=== PATIENT | female | born 1990 | race Caucasian/White ===

== ENCOUNTER → 2018-03-23 11:01 | Outpatient (CLI) | payer OTHER, SELFPAY ==
[2018-03-24 14:45] LABS: HPV Reflexed? NOT INDICATED
== END ==
PROVIDERS: Visit Provider Obstetrics & Gynecology
DX: Z12.4 Encounter for screening for malignant neoplasm of cervix (principal)
CPT/HCPCS: 88175; G0145

== ENCOUNTER → 2018-09-01 11:12 | Outpatient (CLI) | payer OTHER, SELFPAY ==
[2018-09-01 12:22] LABS: Progesterone Level 0.31 ng/mL (See Comment)
[2018-09-01 12:23] LABS: Hemoglobin A1c 4.9 % (4.2-6.3)
[2018-09-01 12:25] LABS: Estradiol 55.8 pg/mL; Free T3 2.9 pg/mL (2.18-3.98); T4 Free Direct 0.93 ng/dL (0.76-1.46); Thyroid Stim Hormone (TSH) 0.72 uIU/mL (0.358-3.74)
[2018-09-02 12:36] LABS: Thyroid Peroxidase AB 11 IU/mL (0-34)
== END ==
PROVIDERS: Visit Provider Obstetrics & Gynecology
DX: N91.1 Secondary amenorrhea (principal)
CPT/HCPCS: 36415; 82670; 83036; 84144; 84403; 84439; 84443; 84481; 86376

== ENCOUNTER → 2018-11-18 12:34 | Outpatient (CLI) | payer OTHER, SELFPAY ==
[2018-11-18 14:27] LABS: Estradiol 69.4 pg/mL
[2018-11-18 14:33] LABS: Progesterone Level 45.36 ng/mL (See Comment)
--- OUTSIDE RECORDS SUMMARY | 2019-01-23 02:22 | XMS RPT_ITS ---
:1990 Author Organization OHIP Care Team Providers Name Role Phone COLEMAN PRASAD DO Admitting Unavailable COLEMAN PRASAD DO Attending Unavailable COLEMAN PRASAD DO Primary Care Unavailable MCKENNA LOPEZ DPZhen Admitting Unavailable MCKENNA LOPEZ DPM Attending Unavailable MCKENNA LOPEZ DPM Primary Care Unavailable [place], ALDAIR Consulting Unavailable PROVIDER, UNKNOWN Consulting Unavailable [place], ALDAIR Admitting Unavailable [place], ALDAIR Attending Unavailable [place], ALDAIR Primary Care Unavailable [place], ALDAIR Consulting Unavailable PROVIDER, UNKNOWN Consulting Unavailable [place], ALDAIR Admitting Unavailable [place], ALDAIR Attending Unavailable [place], ALDAIR Primary Care Unavailable [place], ALDAIR Consulting Unavailable PROVIDER, UNKNOWN Consulting Unavailable ALDAIR HAAS Admitting Unavailable ALDAIR HAAS Attending Unavailable ALDAIR HAAS Primary Care Unavailable ALDAIR HAAS Consulting Unavailable PROVIDER, UNKNOWN Consulting Unavailable Seema Yeh Attending Unavailable Seema Yeh Referring Unavailable Aldair Haas PA-C Primary Care Unavailable Seema Yeh Attending Unavailable Seema Yeh Attending Unavailable PROBLEMS PROBLEMS DATE TYPE CONDITION / CODE ATTENDING STATUS SOURCE 08/03/2018 Principle Amenorrhea, ALDAIR HAAS Active Ronny Pomirina Diagnosis unspecified / [facility] N[facility](ICD-10[facility] Repository 03/23/2018 Unknown Z12.4 - Encounter Seema Yeh for screening for [facility] neoplasm of Repository cervix / Z12.4(ICD-10) PROCEDURES PROCEDURES No Procedure Records FoundRESULTS RESULTS ESTRADIOL Collected: 11/18/2018 Status: F Source: [place] 12:49 PM [facility] REPOSITORY TYPE CODE TESTS RESULT OUT OF RANGE REFERENCE UNITS LAB L3300.1750 pg/mL Normal ESTRADIOL 69.4 Result Comment: NORMAL REFERENCE RANGES FEMALE FOLLICULAR 21.4 - 164.8 pg/mL MID-CYCLE PEAK 49.9 - 367.2 pg/mL LUTEAL 40.2 - 259.0 pg/mL POST-MENOPAUSAL ON MHT <11.0 - 462.1 pg/mL NOT ON MHT <11.0 - 58.3 pg/mL MALE <11.0 - 52.5 pg/mL NOTE: [facility] HAS CONFIRMED THE DRUG FULVETRANT (FASLODEX) MAY CAUSE FALSELY ELEVATED ESTRADIOL RESULTS WHEN USING THIS TEST METHOD. IF PATIENT IS TAKING FULVESTRANT AN ALTERNATIVE METHOD SHOULD BE USED TO DETERMINE ESTRADIOL CONCENTRATION. Performed By: #### L3300.1750 #### [facility] [address] [place], [address] PROGESTERONE LEVEL Collected: 11/18/2018 Status: F Source: [place] 12:49 PM [facility] REPOSITORY TYPE CODE TESTS RESULT OUT OF REFERENCE UNITS RANGE LAB L509.4001 See Comment ng/mL Progesterone Normal 45.36 Result Comment: Progesterone Reference Table: UNITS Female: Follicular 0.15 - 1.40 ng/mL Luteal 3.34 - 25.56 ng/mL Mid-luteal 4.44 - 28.03 ng/mL Postmenopausal 0.0 - 0.73 ng/mL : 1st Trimester 11.22 - 90.00 ng/mL 2nd Trimester 25.55 - 89.40 ng/mL 3rd Trimester 48.40 -422.50 ng/mL Performed By: #### L509.4001 #### [facility] [address] [place], [address] TESTOSTERONE, SERUM TOTAL Collected: 09/01/2018 Status: F Source: [place] 11:34 AM [facility] REPOSITORY TYPE CODE TESTS RESULT OUT OF REFERENCE UNITS RANGE LAB L509.3000 ng/dL Testosterone Normal 56.91 Result Comment: NORMAL REFERENCE RANGES MALE AGE <50 123.06 - 813.86 ng/dL MALE AGE >50 89.98 - 780.10 ng/dL FEMALE PREMENOPAUSE AGE 21 - 60 9.01 - 47.94 ng/dL FEMALE POSTMENOPAUSE AGE 45 - 89 <7.00 - 45.62 ng/dL REFERENCE RANGE AND METHODOLOGY CHANGED 10/20/2017 Performed By: #### L509.3000, L509.4001 #### [facility] [address] [place], [place], [address] PROGESTERONE LEVEL Collected: 09/01/2018 Status: F Source: [place] 11:34 AM [facility] REPOSITORY TYPE CODE TESTS RESULT OUT OF REFERENCE UNITS RANGE LAB L509.4001 See Comment ng/mL Progesterone Normal 0.31 Result Comment: Progesterone Reference Table: UNITS Female: Follicular 0.15 - 1.40 ng/mL Luteal 3.34 - 25.56 ng/mL Mid-luteal 4.44 - 28.03 ng/mL Postmenopausal 0.0 - 0.73 ng/mL : 1st Trimester 11.22 - 90.00 ng/mL 2nd Trimester 25.55 - 89.40 ng/mL 3rd Trimester 48.40 -422.50 ng/mL Performed By: #### L509.3000, L509.4001 #### [facility] [address] [facility] [place], [address] HEMOGLOBIN A1C Collected: 09/01/2018 Status: F Source: [place] 11:34 AM [facility] REPOSITORY TYPE CODE TESTS RESULT OUT OF RANGE REFERENCE UNITS LAB L501.9985 4.2-6.3 % Normal HGB A1C 4.9 Performed By: #### L501.9985 #### [facility] [address] [place], [address] FREE T3 Collected: 09/01/2018 Status: F Source: [place] 11:34 AM [facility] REPOSITORY TYPE CODE TESTS RESULT OUT OF RANGE REFERENCE UNITS LAB L501.38061 2.18-3.98 pg/mL Normal FREE T3 2.9 Performed By: #### L501.96378, L501.9520, L506.0400, L3300.1750 #### [facility] [address] [place], [address] THYROID STIM HORMONE Collected: 09/01/2018 Status: F Source: [place] (TSH) 11:34 AM [facility] REPOSITORY TYPE CODE TESTS RESULT OUT OF RANGE REFERENCE UNITS LAB L501.9520 0.358-3.74 uIU/mL Normal TSH 0.72 Performed By: #### L501.37618, L501.9520, L506.0400, L3300.1750 #### [facility] [address] [place], [address] T4 FREE DIRECT Collected: 09/01/2018 Status: F Source: [place] 11:34 AM [facility] REPOSITORY TYPE CODE TESTS RESULT OUT OF RANGE REFERENCE UNITS LAB L506.0400 0.76-1.46 ng/dL Normal T4 FREE 0.93 DIRECT Performed By: #### L501.55363, L501.9520, L506.0400, L3300.1750 #### [facility] [address] [place], [address] ESTRADIOL Collected: 09/01/2018 Status: F Source: [place] 11:34 AM [facility] REPOSITORY TYPE CODE TESTS RESULT OUT OF RANGE REFERENCE UNITS LAB L3300.1750 pg/mL Normal ESTRADIOL 55.8 Result Comment: NORMAL REFERENCE RANGES FEMALE FOLLICULAR 21.4 - 164.8 pg/mL MID-CYCLE PEAK 49.9 - 367.2 pg/mL LUTEAL 40.2 - 259.0 pg/mL POST-MENOPAUSAL ON MHT <11.0 - 462.1 pg/mL NOT ON MHT <11.0 - 58.3 pg/mL MALE <11.0 - 52.5 pg/mL NOTE: [facility] HAS CONFIRMED THE DRUG FULVETRANT (FASLODEX) MAY CAUSE FALSELY ELEVATED ESTRADIOL RESULTS WHEN USING THIS TEST METHOD. IF PATIENT IS TAKING FULVESTRANT AN ALTERNATIVE METHOD SHOULD BE USED TO DETERMINE ESTRADIOL CONCENTRATION. Performed By: #### L501.39840, L501.9520, L506.0400, L3300.1750 #### [facility] [address] [place], [address] THYROID PEROXIDASE AB Collected: 09/01/2018 Status: F Source: [place] 11:34 AM [facility] REPOSITORY TYPE CODE TESTS RESULT OUT OF RANGE REFERENCE UNITS LAB L3300.6900 0-34 IU/mL Normal TPO AB 11 1710 Result Comment: Performed at: - [facility] [address] [id number] Baggage Checker: Reno Dennis PhD, Phone: [phone] Performed By: #### L3300.6900 #### [facility] (refer to report for specific site) refer to report for address and phone number US PELVIC Observed: 08/19/2018 Status: F Source: [place] 2:[address] [address] Patient: PAULY PERES Phone#: : 1990 Age: 27 Gender: F Pt. Type: Out Account: [id number] Location: [facility] Ordering: ALDAIR [place] Exam Date: 08/19/2018/13:50 Family Phys: ALDAIR HAAS Charge Code: [id number] Physician: [place] Order #: [id number] DLP Dose#: PROCEDURE: PELVIC ULTRASOUND, TRANSABDOMINAL ENDOVAGINAL COMPARISON: None. INDICATIONS: Ammenorrhea TECHNIQUE: Pelvic ultrasound using transabdominal and endovaginal technique. FINDINGS: UTERUS: Size is 5.8 x 3 x 4 cm with unremarkable appearance. Endometrial thickness is 4 mm. ADNEXAE: Normal bilateral appearance with no significant masses. Right ovary is <<3.4 x 3.7> cm. Left ovary is <3 x 1.8>cm. CUL-DE-SAC: Normal. No fluid or mass. OTHER: No free fluid in the pelvis CONCLUSION: 1. Unremarkable pelvic ultrasound Dictated by: Denzel Vyas MD on 08/19/2018 at 15:04 Approved by: Denzel Vyas MD on 08/19/2018 at 15:04 PREG SERUM QUANT Collected: 08/03/2018 Status: F Source: [place] 5:05 PM [facility] TYPE CODE TESTS RESULT OUT OF REFERENCE UNITS RANGE LAB HCG mIU/mL QUANTITATI VE(LOINC) HCG QUANTITATIVE <0.5 Result Comment: Reference Range: Male: <5 Female: Non: <5 1 - 7 days : 5 - 50 1 - 2 weeks: 50 - 500 2 - 3 weeks: 100 - 5000 3 - 4 weeks: 500 - 10,000 4 - 5 weeks: 1000 - 50,000 5 - 6 weeks: 10,000 - 100,000 6 - 8 weeks: 15,000 - 200,000 2 - 3 months: 10,000 - 100,000 2ND TRIMESTER 3000-50,000 3RD TRIMESTER 1000-50,000 Performed By: #### [id number] #### [place] [address] TSH Collected: 08/03/2018 Status: F Source: [place] 5:05 [facility] TYPE CODE TESTS RESULT OUT OF RANGE REFERENCE UNITS LAB TSH(LOINC) 0.34 - 5.60 uIU/ml TSH 0.99 Performed By: #### [id number] #### [facility],[address] [place] [address] FOOT COMPLETE LT Observed: 04/11/2018 Status: F Source: [place] 8:08 AM [place] [address] Patient: PAULY PERES Phone#: : 1990 Age: 27 Gender: F Pt. Type: Out Account: [id number] Location: 052 Ordering: MCKENNA LOPEZ Exam Date: 04/11/2018/7:51 Family Phys: ALDAIR HAAS Charge Code: [id number] Physician: [place] Order #: [id number] DLP Dose#: PROCEDURE: X-RAY FOOT LT COMPLETE MIN 3 VIEWS COMPARISON: [facility], XR, FOOT LT COMPLETE, 03/12/2018, 12:49. INDICATIONS: Follow-up left foot fracture FINDINGS: BONES: Stable position and alignment at site of fracture the base of the fifth metatarsal. There is no significant callus identified. SOFT TISSUES: Negative. No visible soft tissue swelling. EFFUSION: None visible. OTHER: Negative. CONCLUSION: 1. Stable position and alignment at site of fracture of the fifth metatarsal. Dictated by: Laura Paz MD on 04/11/2018 at 11:16 Approved by: Laura Paz MD on 04/11/2018 at 11:16 PAP I-G W/RFX HRHPV Collected: 03/23/2018 Status: F Source: [place] 9:30 AM [facility] REPOSITORY Order Comment: CYTOLOGY INFORMATION: - CLINICAL INFORMATION: - DATE LMP/MENOPAUSE: 02/28/18 - COLLECTION VIAL: Thin Prep Vial - HOME DEMONSTRATION AGENT SOURCE: CERVICAL/ENDOCERVICAL - COLLECTION TECHNIQUE: BRUSH/SPATULA Specimen Comment: [id number] Specimen Comment: No. of containers..01 ThinPrep Vial TYPE CODE TESTS RESULT OUT OF RANGE REFERENCE UNITS LAB L7400.0800 . Normal DIAGN Comment Result Comment: NEGATIVE FOR INTRAEPITHELIAL LESION AND MALIGNANCY. LAB L7400.0900 . Normal ADEQ Comment Result Comment: Satisfactory for evaluation. Endocervical and/or squamous metaplastic cells (endocervical component) are present. LAB L7400.1400 . Normal PERFORM Comment Result Comment: Sarah Marks, Primary School Teacher Librarian (ASCP) LAB L7400.2575 . Normal TEST METHOD Comment Result Comment: This liquid based ThinPrep(R) pap test was screened with the use of an image guided system. LAB L7400.2600 . Normal . COMM LAB L7400.2700 . Normal PAPSMR Comment Result Comment: The Pap smear is a screening test designed to aid in the detection of premalignant and malignant conditions of the uterine cervix. It is not a diagnostic procedure and should not be used as the sole means of detecting cervical cancer. Both false-positive and false-negative reports do occur. LAB L7400.2800 . Normal HPV RFLX Comment Result Comment: The HPV DNA reflex criteria were not met with this specimen result therefore, no HPV testing was performed. Performed at: - [facility] [address] [id number] Baggage Checker: Susanna Frazier MD, Phone: [phone] Performed By: #### L7400.0350 #### [facility] (refer to report for specific site) refer to report for address and phone number EMERGENCY REPORT Observed: 03/13/2018 Status: F Source: [facility] 9:22 AM [facility] EMERGENCY ROOM REPORT NAME ACCOUNT SEX AGE ADMIT DISCHARGE PT MED. RECORD# NUMBER DATE DATE TYPE PAULY PERES [id number] F 27 03/12/18 03/12/18 3 E [id number] ROOM: ER DATE OF : 1990 DICTATING PHYSICIAN: Coleman Prasad TIME SEEN: 12:30 p.m. CHIEF COMPLAINT/HISTORY OF PRESENT ILLNESS: This is a 27-year-old, white female complaining of left foot and ankle pain after she stepped into a pothole last night forcibly inverting her left foot and ankle. She has complained of pain and swelling over the lateral aspect of the left foot and ankle ever since then. The pain is worse with movement and weightbearing. Denies any associated numbness or tingling. She did not fall so she did not strike her head. PAST MEDICAL HISTORY: Denied. PAST SURGICAL HISTORY: Denied. ALLERGIES: No known drug allergies. SOCIAL HISTORY: She does not smoke. Does not use alcohol. Lives at home with her spouse. REVIEW OF SYSTEMS: Denies any chest pain, shortness of breath, cough, sputum, wheezing, abdominal pain, nausea, vomiting, diarrhea, constipation, melena, hematochezia, headache, numbness, unsteady gait, weakness, neck or back pain, joint pain. Does complain of left foot and ankle pain with some swelling. Presently rates the foot pain as a 5 on a severity scale of 1 to 10. Further review of systems is negative. PHYSICAL EXAMINATION: Patient is alert and oriented x 3. She presently appears in no acute distress. She is pleasant and cooperative. HEENT: Head appears atraumatic. Pupils are equal and reactive to light. Red reflex is intact bilaterally. Extraocular muscles are intact. No conjunctival injection. No scleral icterus or lid edema. Nose exhibits no rhinorrhea or epistaxis. Mouth: Mucous membranes are moist. No pharyngeal erythema. Uvula is midline and elevates. Neck is supple. Trachea is midline. No JVD or lymphadenopathy. No posterior cervical tenderness. No nuchal rigidity. Lungs are clear to auscultation in all lung grimes. No adventitious sounds noted. No accessory muscle use. CVS: Heart rate and rhythm regular without murmur. Abdomen is soft and nontender with normoactive bowel sounds x4 quadrants. No guarding or rigidity. No rebound. No palpable abdominal mass. No Page 1 of 2 PAULY PERES Emergency Room Report hepatosplenomegaly. Back exhibits no midline or paraspinal region tenderness. No increased paraspinal muscle rigidity. Negative Robb's sign. Extremities: I do note some swelling to the lateral malleolus of the left ankle that extends into the lateral aspect of the left foot. She is tender with palpation directly over the fifth metatarsal region of the left foot and she is also tender, to a lesser degree, over the lateral malleolus of the left ankle. I do note some ecchymosis that extends from the lateral malleolus extends distally across the fourth and fifth metatarsal regions of the left foot. No skin abrasion or laceration. She has good sensation to light touch to all digits of the left foot. Capillary refill is less than 2 seconds. Good intact left dorsalis pedis pulse. Neurologic exam shows the patient to be alert and oriented x4. No motor or sensory deficits are noted. Normal speech. Skin is warm and dry. No diaphoresis or rash. Patient is pleasant and cooperative with normal affect. DIAGNOSTIC DATA: X-rays of the left foot looked okay to me. I did not see a fracture there. However, when I looked at the ankle x-rays I got a different orientation on the proximal fifth metatarsal and there does look to me like there is an intraarticular nondisplaced fracture at the very base of the fifth metatarsal. That is where the patient is the most swollen and most tender so I am going to treat that as a nondisplaced fracture. EMERGENCY DEPARTMENT COURSE AND TREATMENT: Presently we will get x-rays of the left ankle and the left foot and then reevaluate. We put her in a posterior OCL splint. Physician applied the splint. We are going to give her crutches. I have advised her against any weightbearing. She does see Karen Gilman in the office so I have asked her to call her office Wednesday to arrange follow up this coming week. I did also give her a referral follow up to [facility] and he can call their office as well on Wednesday and arrange follow up for this coming week. In the meantime, she is not to bear weight on the left foot or ankle until someone sees her in follow up. DIAGNOSIS: Nondisplaced fracture base of the left fifth metatarsal. Dictated By: Coleman Prasad DO 03/12/18 14:14 JOB #: [id number] Transcribed By: nathaniel 03/12/18 20:31 Electronically signed by: E-Sign: Dr. Coleman Prasad D.O. 03/13/18 09:22 Page 2 of 2 ALRISA PAULY Charly Emergency Room Report ANKLE COMPLETE LT Observed: 03/12/2018 Status: F [facility] [place] [address] Patient: PAULY PERES. Phone#: : 1990 Age: 27 Gender: F Pt. Type: ER Account: [id number] Location: 052 Ordering: COLEMAN PRASAD Exam Date: 03/12/2018/12:47 Family Phys: Charge Code: [id number] Physician: [place] Order #: [id number] DLP Dose#: PROCEDURE: X-RAY ANKLE COMPLETE LT MIN 3 VIEWS COMPARISON: None. INDICATIONS: Trauma FINDINGS: BONES: Nondisplaced fracture at the base of the fifth metatarsal. SOFT TISSUES: Negative. No visible soft tissue swelling. EFFUSION: None visible. OTHER: Negative. CONCLUSION: 1. Nondisplaced fracture at the base of the fifth metatarsal. Dictated by: Eve Gant MD on 03/13/2018 at 19:40 Approved by: Eve Gant MD on 03/13/2018 at 19:40 FOOT COMPLETE LT Observed: 03/12/2018 Status: F [facility] REPOSITORY [place] [address] Patient: PAULY PERES Phone#: : 1990 Age: 27 Gender: F Pt. Type: ER Account: [id number] Location: 2 Ordering: COLEMAN PRASAD Exam Date: 03/12/2018/12:49 Family Phys: Charge Code: [id number] Physician: [place] Order #: [id number] DLP Dose#: PROCEDURE: X-RAY FOOT LT COMPLETE MIN 3 VIEWS COMPARISON: [facility], XR, ANKLE COMPLETE LT, 03/12/2018, 12:47. INDICATIONS: Trauma FINDINGS: BONES: Nondisplaced fracture at the base of the fifth metatarsal. Fracture better appreciated on ankle radiograph performed same day. SOFT TISSUES: There is mild soft tissue swelling. EFFUSION: None visible. OTHER: Negative. CONCLUSION: 1. Nondisplaced fracture of the base of fifth metatarsal. Dictated by: Eve Gant MD on 03/13/2018 at 19:42 Approved by: Eve Gant MD on 03/13/2018 at 19:42 ALLERGIES ALLERGIES DATE TYPE / CODE NAME / CODE REACTION SEVERITY SOURCE Miscellaneous No Known Drug Moderate [facility] Allergy/[id number](S Allergies ([facility]) Modifier) Hospital (Qualifier Repository Value) ENCOUNTERS ENCOUNTERS ADMIT/DISCHARGE ACCOUNT ADMITTING ENCOUNTER LOCATION SOURCE NUMBER CLASS 11/18/2018 [id number] Ambulatory [facility] ing:LAB Repository 09/01/2018 [id number] Ambulatory [facility] ing:WOBLAB Repository 08/19/2018/ [id number] [address] Repository 08/03/2018/ [id number] [address] Repository 08/03/2018/ [id number] [facility] Repository 04/11/2018/ [id number] MCKENNA LOPEZ [facility] Repository 03/23/2018 [id number] Ambulatory Lian Lian [facility] ing:WOBLAB Repository 03/12/2018/ [id number] COLEMAN PRASAD [facility] [address] [place] [address] 8 DO oom: ERBed: J [facility] Repository PAYERS PAYERS ENCOUNTER GUARANTOR PAYER SUBSCRIBER SOURCE 11/18/2018 PAULY E Primary PAULY E [facility] [id number] Insurance:[place]ARE[place] MASTDOB: [address], icy Number: [id number] [address]Hly: [id number] Repository Date:[id number] ([place]) [address], [place] [address]CA: 11/18/2018 Secondary NOT GIVENUNK [facility] Insurance:SELF PAY [facility] Number: Effective Repository Date:2018-11-18 09/01/2018 PAULY [id number] Primary PAULY MASTDOB: [facility] TR Insurance:[place]ARE[place] [id number], icy Number: [facility] [address]Wnr: [id number] Repository Date:2712-82-19[address] () [address], [place] [address]LC: 09/01/2018 Secondary NOT GIVENUNK Lian Insurance:SELF PAY [facility] Number: Effective Repository Date:2018-09-01 08/19/2018 PAULY MASTDOB: Primary PAULY MASTDOB: Ronny Pomerene [id number] Insurance:[place]ARE[place] [id number] [facility] icy Number: [address], [id number] [address], [place]ository [place] [address]Ioi: Date:[place] [id number] () 08/03/2018 PAULY MASTDOB: Primary PAULY MASTDOB: Ronny [place] Insurance:[place]ARE[place] [id number] [facility] icy Number: [address] [facility] [address] [address], [id number] [address] [place] [address], Repository [place] [address]Shl: Date:Plan Name:[facility] [id number] () 08/03/2018 PAULY MASTDOB: Primary PAULY AKINSDOB: Ronny [place] Insurance:[place]ARE[place] [id number] [facility] icy Number: [address], [id number] [facility] [place] [address]Tau: Date:[place] [id number] () 04/11/2018 PAULY E Primary PAULY AKINSDOB: Ronny [place] MASTDOB: Insurance:[place]ARE[place] [id number] [facility] [id number] icy Number: [facility] RD [id number] [facility] Repository [address] [place] [address], Date:[place] [id number] [place] [address]Rva: () 03/23/2018 PAULY [id number] Primary PAULY MASTDOB: [facility] TR Insurance:[place]TCAREPol [id number], icy Number: [facility] [address]Ttk: [id number] Repository Date:8586-47-71EP BOX () [address], [place] [address]ML: 03/23/2018 Secondary NOT GIVENUNK [facility] Insurance:SELF PAY [facility] Number: Effective Repository Date:2018-03-23 03/12/2018 PAULY E Primary PAULY AKINSDOB: Ronny [place] MASTDOB: Insurance:[place]ARE[place] [id number] [facility] icy Number: [facility] RD [id number] [facility] Repository [address] [place], Date:[place] [id number] [place] [id number]: ()
== END ==
PROVIDERS: Family Provider Family Medicine; PCP Family Medicine; Referring Provider Obstetrics & Gynecology; Visit Provider Obstetrics & Gynecology
DX: N92.6 Irregular menstruation, unspecified (principal)
CPT/HCPCS: 36415; 82670; 84144

== ENCOUNTER → 2019-11-10 15:11 | Outpatient (CLI) | payer OTHER, SELFPAY ==
[2019-11-10 14:48] VITALS: BMI 31.0
== END ==
PROVIDERS: Family Provider Family Medicine; PCP Family Medicine; Referring Provider Obstetrics & Gynecology; Visit Provider Obstetrics & Gynecology
DX: Z36.9 Encounter for antenatal screening, unspecified (principal)
CPT/HCPCS: 36415

== ENCOUNTER → 2019-12-08 11:46 | Outpatient (CLI) | payer OTHER, SELFPAY ==
[2019-12-08 10:35] VITALS: BMI 31.0
[2019-12-08 12:29] LABS: Absolute Lymphocyte Count 2.95 X10^3/uL (0.83-4.51); Absolute Neutrophil Count 10.1 X10^3/uL (2.0-7.7); Basophil# 0.04 X10^3/uL; Basophil% 0.3 % (0-1); Eosinophil# 0.22 X10^3/uL; Eosinophils% 1.6 % (0-5); Hematocrit 39.6 % (37-47); Hemoglobin 13.7 g/dL (12.0-15.0); Lymphocyte # 2.95 X10^3/ul (4.0); Lymphocyte % 21.2 % (19-41); Mean Corp Hgb Conc 34.6 g/dL (32-36); Mean Corpuscular Hgb 30.3 pg (27.0-32.0); Mean Corpuscular Volume 87.6 fL (81-99); Mean Platelet Vol. 9.9 fl (6.2-12.0); Monocyte# 0.55 X10^3/uL; NRBC Flagged by Analyzer 0 % (0-5); Neutrophil # 10.11 X10^3/uL (2.7-7.7); Neutrophil % 72.6 % (47-70); Platelet Count 298 K/mm3 (150-450); RBC Distribution Width SD 38.5 fl (35.1-43.9); Red Blood Count 4.52 M/mm3 (4.2-5.4); White Blood Count 13.9 K/mm3 (4.4-11.0)
[2019-12-08 12:33] LABS: ALB/GLOB Ratio 0.8 RATIO (0.9-2.4); AST(SGOT) 12 U/L (15-37); Alanine Aminotransfer ALT/SGPT 23 U/L (13-56); Albumin, Serum 3.1 g/dL (3.2-5.0); Alkaline Phosphatase 51 U/L (45-117); Anion Gap 4 (5-15); BUN 6 mg/dL (7-18); BUN/Creat Ratio 8.3 RATIO (10-20); Chloride 109 mmol/L (98-107); Creatinine, Serum 0.72 mg/dL (0.55-1.02); EST Glomerular Filtration Rate 100 mL/min (>60); Est Glom Filt Rate - Afr Amer 121 mL/min (>60); Glucose 71 mg/dL (74-106); Potassium 3.8 mmol/L (3.5-5.1); Protein, Total 7.1 g/dL (6.4-8.2); Sodium Level 138 mmol/L (136-145)
[2019-12-08 14:22] LABS: Protein, Urine (Random) 7.7 mg/dL (<11.9); Protein:Creat Ratio 80 mg/g CRE (0-200)
== END ==
PROVIDERS: PCP Family Medicine; Referring Provider Obstetrics & Gynecology; Visit Provider Obstetrics & Gynecology
DX: O16.9 Unspecified maternal hypertension, unspecified trimester (principal); Z3A.00 Weeks of gestation of pregnancy not specified
CPT/HCPCS: 36415; 80053; 82570; 84156; 85025

== ENCOUNTER → 2020-01-26 13:55 | Outpatient (CLI) | payer OTHER, SELFPAY ==
[2020-01-01 14:34] VITALS: BMI 31.0
[2020-01-26 14:45] LABS: Absolute Lymphocyte Count 3.07 X10^3/uL (0.83-4.51); Absolute Neutrophil Count 11.3 X10^3/uL (2.0-7.7); Basophil# 0.04 X10^3/uL; Basophil% 0.3 % (0-1); Eosinophils% 1.9 % (0-5); Hemoglobin 13.1 g/dL (12.0-15.0); Lymphocyte # 3.07 X10^3/ul (4.0); Lymphocyte % 19.7 % (19-41); Mean Corp Hgb Conc 34.5 g/dL (32-36); Mean Corpuscular Hgb 30.9 pg (27.0-32.0); Mean Corpuscular Volume 89.6 fL (81-99); Mean Platelet Vol. 9.9 fl (6.2-12.0); Monocyte# 0.78 X10^3/uL; NRBC Flagged by Analyzer 0 % (0-5); Neutrophil # 11.33 X10^3/uL (2.7-7.7); Neutrophil % 72.7 % (47-70); Platelet Count 300 K/mm3 (150-450); RBC Distribution Width CV 11.9 % (11.6-14.6); RBC Distribution Width SD 38.2 fl (35.1-43.9); Red Blood Count 4.24 M/mm3 (4.2-5.4); White Blood Count 15.6 K/mm3 (4.4-11.0)
[2020-01-26 15:13] LABS: Glucose Challenge Gest 1H 50g 84 mg/dL (70-140)
== END ==
PROVIDERS: PCP Family Medicine; Referring Provider Obstetrics & Gynecology; Visit Provider Obstetrics & Gynecology
DX: O09.90 Supervision of high risk pregnancy, unspecified, unspecified trimester (principal)
CPT/HCPCS: 36415; 82950; 85025

== ENCOUNTER → 2020-03-22 | Outpatient (CLI) | payer OTHER, SELFPAY ==
[2020-03-22 10:36] VITALS: BMI 31.0
[2020-03-22 13:20] LABS: Protein:Creat Ratio 112 mg/g CRE (0-200)
== END | disposition home or self-care (01) ==
LOC: LABSPEC 12:36
PROVIDERS: PCP Family Medicine; Referring Provider Obstetrics & Gynecology; Visit Provider Obstetrics & Gynecology
DX: O16.3 Unspecified maternal hypertension, third trimester (principal); Z3A.36 36 weeks gestation of pregnancy
CPT/HCPCS: 82570; 84156; 87081

== ENCOUNTER 2020-03-29 19:23 | Inpatient (IN) | payer OTHER, SELFPAY ==
[2020-02-23 10:33] VITALS: BMI 31.0
[2020-03-29] VITALS (13 sets, daily range): BP systolic 131–154; BP diastolic 82–98; PULSE 69–102; TEMP 37.2–37.3; O2SAT 97; BMI 31.0; BMI 33.7
[2020-03-29 12:03] LABS: Hematocrit 38.4 % (37-47); Hemoglobin 13.2 g/dL (12.0-15.0); Mean Corp Hgb Conc 34.4 g/dL (32-36); Mean Corpuscular Hgb 31.4 pg (27.0-32.0); Mean Corpuscular Volume 91.4 fL (81-99); Mean Platelet Vol. 10.7 fl (6.2-12.0); Platelet Count 282 K/mm3 (150-450); RBC Distribution Width CV 11.9 % (11.6-14.6); RBC Distribution Width SD 39.1 fl (35.1-43.9); White Blood Count 13.4 K/mm3 (4.4-11.0)
[2020-03-29 12:13] LABS: Protein, Urine (Random) 6.5 mg/dL (<11.9); Protein:Creat Ratio 94 mg/g CRE (0-200)
[2020-03-29 12:15] LABS: International Normalized Ratio 0.9; Prothrombin Time (Protime)PT. 11.9 SECONDS (11.7-14.9)
[2020-03-29 12:16] LABS: Partial Thromboplast Time 23.3 Seconds (24.1-36.2)
[2020-03-29 13:29] LABS: EST Glomerular Filtration Rate 89 mL/min (>60); Estimated Creatinine Clearance 102.78 ml/min
[2020-03-29 13:30] LABS: AST(SGOT) 14 U/L (15-37); Alanine Aminotransfer ALT/SGPT 20 U/L (13-56); Est Glom Filt Rate - Afr Amer 108 mL/min (>60); Uric Acid 4.5 mg/dL (2.6-6.0)
[2020-03-29 14:46] LABS: Probe Check PASS; SARS-COV-2 DNA by PCR Negative (Negative); Specimen Processing Control PASS
[2020-03-29 20:14] LABS: Absolute Neutrophil Count 12.3 X10^3/uL (2.0-7.7); Basophil# 0.07 X10^3/uL; Basophil% 0.4 % (0-1); Eosinophil# 0.29 X10^3/uL; Eosinophils% 1.7 % (0-5); Hematocrit 35.8 % (37-47); Hemoglobin 12.5 g/dL (12.0-15.0); Lymphocyte % 20.2 % (19-41); Mean Corp Hgb Conc 34.9 g/dL (32-36); Mean Corpuscular Hgb 31.4 pg (27.0-32.0); Mean Corpuscular Volume 89.9 fL (81-99); Mean Platelet Vol. 10.8 fl (6.2-12.0); Monocyte% 4.2 % (0-10); NRBC Flagged by Analyzer 0 % (0-5); Neutrophil # 12.32 X10^3/uL (2.7-7.7); Neutrophil % 73.1 % (47-70); Platelet Count 274 K/mm3 (150-450); RBC Distribution Width SD 39.1 fl (35.1-43.9); Red Blood Count 3.98 M/mm3 (4.2-5.4); White Blood Count 16.9 K/mm3 (4.4-11.0)
[2020-03-29] MEDS: miSOPROStol 25 MCG TABLET VAGINAL (21:16)
[2020-03-30] VITALS (50 sets, daily range): BP systolic 114–169; BP diastolic 69–104; PULSE 57–143; RESP 16–18; TEMP 36.1–37.4; O2SAT 81–100
[2020-03-30] MEDS: miSOPROStol 50 MCG TABLET VAGINAL (01:45)
--- NOTE | 2020-03-30 02:23 | HP.PCM_ITS ---
- Problem List (1) Gestational hypertension Status: Acute (2) conceived through in vitro fertilization Status: Acute Qualifiers: Comment: echo normal. 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 Negative AFP. nl anatomy (8) Infertility Status: Acute Comment: Frozen embryo transfer, pre implantation genetic testing. 5 embryos- 3 normal (2 male, 1 female) History Date of Admission: 03/30/20 Final LYNETTE: 04/15/20 Gestational age: 37 Weeks and 5 Days History of this : This is a 29 year-old, G 1P0, at 37 weeks gestational age presents for induction of labor secondary to gestational hypertension. Over the course the last couple days blood pressures at home and in the office have been 140s over 90s. Urine was negative for protein and labs were within normal limits and patient was asymptomatic.. Medical History: Medical History (Last Reviewed 03/29/20 @ 11:16 by Rebekah Burns) PCOS (polycystic ovarian syndrome) (Acute) E28.2 Asthma (Acute) J45.909 controlled by pcp yanira hernandez, budesonide and albuterol Surgical History: Surgical History (Last Reviewed 03/29/20 @ 11:16 by Rebekah Burns) History of tonsillectomy Z90.89 Allergies No Known Allergies Allergy (Verified 03/29/20 11:15) Home Medications: Home Medications aspirin 81 mg tablet,delayed release 81 mg PO DAILY 10/12/19 Albuterol Inhaler [Ventolin Hfa (SP)] 2 puff INHALATION Q4H PRN PRN 03/29/20 Beclomethasone Dipropionate [Qvar RediHaler] 1 inh INHALATION BID 03/29/20 Vits [Prenatabs FA] 1 tab PO DAILY 03/29/20 Smoking Status: Never smoker NST - FHR Rate Baby A Baseline: 140 Variability:: Moderate Accelerations:: 15 x 15 Decelerations:: None NST Reactive:: Yes FHR Category:: Category I Uterine Activity:: irregular History Past Pregnancies: Past Pregnancies Delivery Date Name GA/ Weeks Outcome Route Wt Sex Labor Length Anesthesia Delivery Location Provider FOB Labs: All Active Problems (Last Reviewed 03/29/20 @ 11:16 by Rebekah Burns) White coat syndrome with high blood pressure but without hypertension (Acute) conceived through in vitro fertilization (Acute) PCOS (polycystic ovarian syndrome) (Acute) Asthma (Acute) PCOS (polycystic ovarian syndrome) (Acute) Supervision of high risk , antepartum (Acute) (Acute) Infertility (Acute) Mom's Current Diagnoses Unspecified maternal hypertension, unspecified trimester 03/29/20 Mom's Labs & Results 03/29/20 03/29/20 03/29/20 11:50 11:52 11:52 WBC 13.4 H RBC 4.20 Hgb 13.2 Hct 38.4 MCV 91.4 MCH 31.4 MCHC 34.4 RDW Std Deviation 39.1 RDW Coeff of Terry 11.9 Plt Count 282 MPV 10.7 Immature Gran % (Auto) Neut % (Auto) Lymph % (Auto) [place] % (Auto) Eos % (Auto) Baso % (Auto) Absolute Neuts (auto) Absolute Lymphs (auto) Nucleated RBC % PT 11.9 INR 0.9 APTT 23.3 L Creatinine Estim Creat Clear Calc Est GFR (MDRD) Af Amer Est GFR (MDRD) Non-Af Uric Acid AST ALT U Random Total Protein 6.5 Urine Creatinine 69.10 Protein/Creatinin Ratio 94 COVID-19 (MANJU) Blood Type Antibody Screen 03/29/20 03/29/20 03/29/20 11:52 13:05 19:40 WBC 16.9 H RBC 3.98 L Hgb 12.5 Hct 35.8 L MCV 89.9 MCH 31.4 MCHC 34.9 RDW Std Deviation 39.1 RDW Coeff of Terry 12.0 Plt Count 274 MPV 10.8 Immature Gran % (Auto) 0.400 Neut % (Auto) 73.1 H Lymph % (Auto) 20.2 [place] % (Auto) 4.2 Eos % (Auto) 1.7 Baso % (Auto) 0.4 Absolute Neuts (auto) 12.3 H Absolute Lymphs (auto) 3.40 Nucleated RBC % 0 PT INR APTT Creatinine 0.80 Estim Creat Clear Calc 102.78 Est GFR (MDRD) Af Amer 108 Est GFR (MDRD) Non-Af 89 Uric Acid 4.5 AST 14 L ALT 20 U Random Total Protein Urine Creatinine Protein/Creatinin Ratio COVID-19 (MANJU) Negative Blood Type Antibody Screen 03/29/20 19:40 WBC RBC Hgb Hct MCV MCH MCHC RDW Std Deviation RDW Coeff of Terry Plt Count MPV Immature Gran % (Auto) Neut % (Auto) Lymph % (Auto) [place] % (Auto) Eos % (Auto) Baso % (Auto) Absolute Neuts (auto) Absolute Lymphs (auto) Nucleated RBC % PT INR APTT Creatinine Estim Creat Clear Calc Est GFR (MDRD) Af Amer Est GFR (MDRD) Non-Af Uric Acid AST ALT U Random Total Protein Urine Creatinine Protein/Creatinin Ratio COVID-19 (MANJU) Blood Type A POSITIVE Antibody Screen NEGATIVE Course Did the patient receive Yes care? Labs Blood Type: A RH: POSITIVE RPR/VDRL/Syphilis Nonreactive Rubella status Immune HbSAg Negative Date Done: 09/06/19 Chlamydia Negative Gonorrhea Negative HIV/AIDS Non-Reactive Group B Strep: Negative Current Obstetrical History Gestational Diabetes No Incompetent Cervix No Infertility Yes: IVF IUGR No Macrosomia No Hypertension/Pre-eclampsia Yes Placenta Previa/Abruption No PTL/PROM No Uterine anomaly No Oligohydramnios No Polyhydramnios No Multiple gestation No Past Medical History Asthma Yes Diabetes No Hypertension No Heart disease No Mitral valve prolapse No Neurologic/Seizure disorder/ No Migraines Kidney disease No Liver disease No Varicosities No Clotting disorders/Hx of DVT No Thyroid Dysfunction No Other medical diseases No Psychiatric disorders No Major trauma No Abnormal PAP smear Yes Sleep apnea No Mammogram in the last 2 years No Social History Marital Status: Alleged father Fidencio Carroll Hx Smoking No Smoking Status Never smoker Expected Infant Delivery Method: Spontaneous Vaginal Review of Systems Constitutional: Denies: Fever, Malaise Eyes: Denies: Blurred vision, Vision Change HEENT: Denies: Head Aches, Visual Changes Cardiovascular: Denies: Chest Pain, Palpitations Respiratory: Denies: Cough, Shortness of Breath, Wheezing Gastrointestinal: Denies: Abdominal Pain, Diarrhea, Nausea, Vomiting Genitourinary: Denies: Dysuria, Hematuria Musculoskeletal: Denies: Joint Pain, Muscle pain Skin: Denies: Lesions, Rash Neurological: Denies: Blurred vision, Focal weakness, Headaches Psychiatric: Denies: Anxiety, Depression Endocrine: Denies: Heat/ Cold Intolerance Hematologic/ Lymphatic: Denies: Easy Bruising, Easy Bleeding Physical Exam Vitals: Vital Signs Temp Pulse BP Pulse Ox 98.7 F 75 120/71 81 03/30/20 00:14 03/30/20 00:13 03/30/20 00:13 03/30/20 00:14 General: Alert, Cooperative, No apparent distress HEENT: Atraumatic, Normocephalic. Negative for: Thyromegaly, Lymphadenopathy Cardiovascular: Regular rate Lungs: Normal air movement Abdomen: Soft, Non Tender, Gravid Neurological: Deep Tendon Reflexes 2+/4 and Symmetrical, Neuro grossly intact. Negative for: Clonus [employer]: Normal external genitalia. Negative for: Vulvar lesions Estimated gestational size: Appropriate for gestational size Presentation: Cephalic Cervix Dilation (cm): 0 Station: -3 Effacement (%): 0 Assessment/Plan All Active Problems (Last Reviewed 03/29/20 @ 11:16 by Rebekah Burns) Gestational hypertension (Acute) White coat syndrome with high blood pressure but without hypertension (Acute) conceived through in vitro fertilization (Acute) PCOS (polycystic ovarian syndrome) (Acute) Asthma (Acute) PCOS (polycystic ovarian syndrome) (Acute) Supervision of high risk , antepartum (Acute) (Acute) Infertility (Acute) This is a 29 year-old, at 37 weeks gestational age presents IOL GHTN. Patient presents IOL, plan management for , pitocin/AROM after Cytotec prep. Pain management: [plans epidural]. GBS [negative]. Management of any complications: Gestational hypertension, labs within normal limits. I have reviewed the [facility] and made any clinically relevant updates.
[2020-03-30] MEDS: Ondansetron 4 MG/2 ML Vial IV (05:45)
[2020-03-30] MEDS: 0.9% Saline Lock 10 ML Syringe IV ×4 (05:46→08:45)
[2020-03-30] MEDS: fentaNYL 100 MCG/2 ML Ampul IV ×2 (06:41→08:45)
[2020-03-30] MEDS: 0.9% Normal Saline Single 100 ML IV.SOLN. IY (07:43)
--- NOTE | 2020-03-30 07:54 | PCM.PN.BLA ---
Progress Note Status post Cytotec x2. heart tone 130 moderate variability reactive no decelerations category 1 tracing. Irritability contractions. Patient is may change to /-4. Coffman bulb placed and will give 25 mcg of vaginal Cytotec after breakfast. After Coffman bulb comes out plan Pitocin. Epidural as needed. STROKE Vital Signs/Narrative: Vital Signs Temp Pulse BP Pulse Ox 03/30/20 07:21 98.5 F 68 141/75 H 98 03/30/20 07:20 70 97 03/30/20 06:44 74 141/82 H 03/30/20 05:25 82 03/30/20 05:16 68 140/79 H 03/30/20 04:17 99 03/30/20 04:16 98.5 F 57 L 155/80 H 99
[2020-03-30] MEDS: proCHLORPERazine 10 MG/2 ML Vial IV (08:40)
[2020-03-30] MEDS: Lactated Ringers 1,000 ML 50 ML IV (08:52)
[2020-03-30] MEDS: Oxytocin 30 units/NS 500 ml 30 UNITS/500 ML IV.SOLN IV (09:54)
[2020-03-30] MEDS: Lactated Ringers 500 ML 999 ML IV (11:19)
[2020-03-30] MEDS: fentaNYL-bupivacaine (epidural) 100 ML BAG EPIDURAL (13:22)
[2020-03-30] MEDS: Terbutaline 1 MG/ML Vial 0.25 MG SC (16:43)
--- NOTE | 2020-03-30 16:43 | PCM.OPRPT ---
Problem List (1) Gestational hypertension Status: Acute (2) conceived through in vitro fertilization Status: Acute Qualifiers: Comment: echo normal. 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 Negative AFP. nl anatomy (8) Infertility Status: Acute Comment: Frozen embryo transfer, pre implantation genetic testing. 5 embryos- 3 normal (2 male, 1 female) Delivery Classification: TAL Date of Procedure: 03/30/20 Pre-Operative Diagnosis: INTOLERANCE to labor Post-Operative Diagnosis: same Indications for : Distress Description of Procedure: Patient presented for induction of labor secondary to gestational hypertension. Proceeded with Cytotec and then Pitocin and Coffman bulb induction of labor. Patient developed recurrent late decelerations that became intermittent but still present despite interventions. Patient was remote from delivery 3 thick and very high with suspected CPD based on pelvic exam. Coffman bulb had been present for 8 hours despite Pitocin and regular contractions. It was discussed with the patient and her and decision was made for a primary low transverse . The patient was placed in the dorsal supine position with leftward tilt. Patient was prepped and draped in the normal sterile fashion. Pfannenstiel skin incision was made with the scalpel and carried through to the underlying layer of fascia with the scalpel. Fascia was nicked in the midline and the incision extended laterally. The rectus bellies were dissected off superiorly and inferiorly with out complication both sharply and bluntly. The peritoneum was entered digitally. The incision was stretched and a low transverse uterine incision was made with the scalpel. The infant's head was delivered atraumatically followed by the anterior and posterior shoulders without complication the rest of the delivered. The cord was clamped and cut and the infant was handed off to awaiting nurse. The placenta was delivered spontaneously immediately following and was noted to be intact and have a three-vessel cord. The uterus was exteriorized cleared of all clots and debris, and the incision was closed in a double layer closure using #1 Monocryl. The ovaries and fallopian tubes were noted to be within normal limits. The uterus was returned to the maternal abdomen and gutters were cleared of all clots and debris. The peritoneum was closed with 3-0 Monocryl in a running fashion. Gloves were changed prior to fascial closure. Fascia was closed with 0 PDS in a running fashion. Subcutaneous tissue was copiously irrigated and the skin was closed with 3-0 Monocryl in a subcuticular fashion. Mepilex dressing was applied without complication. Patient was taken to recovery in stable condition. It was discussed with the patient that based on the clinical information obtained during this encounter, combined with her history, at this time I would recommend [ ] for future deliveries if further pregnancies are desired. Amniotic Membrane Rupture Type: Artificial Amniotic Fluid Description: Clear Placenta Disposition: [facility] Fluids Replaced: crystalloid Cord Entanglement: Around neck x 1, loose - under the head almost funic presentation at delivery noted upon incision Esitmated Blood Loss (ml): 500 Infant Gender: Male (1 minute): 4 (5 minute): 7 - 8 Delayed cord clamping: No Antibiotic Given: Ancef 2 grams IV x1, Zithromax 500 mg/5 mL X1 Pt instructed on risks of surgery: Bleeding, Anesthesia Risks, Infection, Need for Future C-Sections, Injury to surrounding structure(s) including bowel and bladder Complications: None - Admit VTE Documentation VTE Present on Admission: No Multi Select Codes - Urinary/Genital Urinary/Genital CPT Codes: 32896 Delivery [facility]
[2020-03-30] MEDS: Lactated Ringers 1,000 ML 200 ML IV (16:47)
[2020-03-30] MEDS: Sodium Citrate/Citric Acid 30 ML UDC PO (16:51)
[2020-03-30] MEDS: Cefazolin 2 GM in 0.9% Normal Saline 100 ML IV (16:56)
[2020-03-30] MEDS: Ketorolac 30 MG/ML Syringe IV (17:43)
[2020-03-30] MEDS: Oxytocin 30 units/NS 500 ml 30 UNITS/500 ML IV.SOLN 167 UNITS IV (18:00)
[2020-03-30] MEDS: Lactated Ringers 1,000 ML 100 ML IV (21:27)
[2020-03-31] VITALS (15 sets, daily range): BP systolic 115–139; BP diastolic 70–88; PULSE 68–86; RESP 14–18; TEMP 36.5–37.1; O2SAT 95–100
[2020-03-31] MEDS: Ketorolac 30 MG/ML Syringe IV ×5 (00:11→23:54)
[2020-03-31 05:56] LABS: Hematocrit 32.8 % (37-47); Hemoglobin 11.2 g/dL (12.0-15.0); Mean Corp Hgb Conc 34.1 g/dL (32-36); Mean Corpuscular Hgb 31.3 pg (27.0-32.0); Mean Corpuscular Volume 91.6 fL (81-99); Mean Platelet Vol. 10.7 fl (6.2-12.0); Platelet Count 222 K/mm3 (150-450); RBC Distribution Width CV 11.9 % (11.6-14.6); RBC Distribution Width SD 39.1 fl (35.1-43.9); Red Blood Count 3.58 M/mm3 (4.2-5.4); White Blood Count 16.4 K/mm3 (4.4-11.0)
--- NOTE | 2020-03-31 07:11 | PCM.PN.OB ---
Patient Problems: Active and Suspected Problems (Last Reviewed 03/29/20 @ 11:16 by Rebekah Burns) Gestational hypertension (Acute) Subjective: doing well no complaints pain controlled no CP SOB N V ambulating well tolerating po lochia moderate, going well - Physical Exam Vitals/I&O's: Vital Signs Temp Pulse Resp BP Pulse Ox 98.5 F 68 16 130/77 H 98 03/31/20 00:00 03/31/20 00:00 03/31/20 00:00 03/31/20 00:00 03/31/20 05:30 Oxygen Delivery Method Room Air Weight: 221 lb 9.033 oz Body Mass Index (BMI) 33.7 Intake and Output for Last 24 Hours 03/29/20 03/30/20 03/31/20 23:59 23:59 23:59 Intake Total 4023.40 / 4023.40 830 / 830 Output Total 150 / 150 2350 / 2350 Balance -150 / -150 1673.40 / 1673.40 830 / 830 General: Alert, Oriented x3 Laboratory Results 03/31/20 05:35: WBC 16.4 H, RBC 3.58 L, Hgb 11.2 L, Hct 32.8 L, MCV 91.6, MCH 31.3, MCHC 34.1, RDW Std Deviation 39.1, RDW Coeff of Terry 11.9, Plt Count 222, MPV 10.7 Current Medications Acetaminophen (Tylenol) 1,000 mg PO Q8H PRN PRN Reason: Pain Score 1-3/10 Bisacodyl (Dulcolax) 10 mg RECTAL UD PRN PRN Reason: If no BM Diphenhydramine HCl (Benadryl) 25 mg PO Q6H PRN PRN PRN Reason: ITCHING Stop: 03/31/20 20:56 Hydrocortisone (Hytone) 1 applic TOPICAL TID PRN PRN; Protocol PRN Reason: Discomfort Lactated Ringer's () 1,000 mls @ 100 mls/hr IV .Q10H KARL Last Infusion: 03/31/20 05:45 Dose: Infused Documented by: Naloxone HCl 4 mg/ Dextrose 504 mls @ 0 mls/hr IV .Q0M PRN; Protocol PRN Reason: Respiratory depression Naloxone HCl 4 mg/ Dextrose 504 mls @ 0 mls/hr IV .Q0M PRN; Protocol PRN Reason: To maintain Resp. rate >10 Ketorolac Tromethamine (Toradol (Bkc)) 30 mg IV Q6 KARL Stop: 04/01/20 12:01 Last Admin: 03/31/20 05:33 Dose: 30 mg Documented by: Methylergonovine Maleate (Methergine) 0.2 mg IM X1 PRN PRN Reason: Uterine Atony Nalbuphine HCl (Nubain) 5 mg IV Q3H PRN PRN PRN Reason: ITCHING Stop: 03/31/20 20:56 Naloxone HCl (Narcan) 0.02 mg IV Q1M PRN PRN Reason: RR <10 and pt unresponsive Naproxen (Naprosyn) 250 - 500 mg PO Q8H PRN PRN PRN Reason: Pain Score 1-3/10 Ondansetron HCl (Zofran) 4 mg IV Q4H PRN PRN PRN Reason: Nausea Oxycodone HCl (Oxyir) 5 - 10 mg PO Q4H PRN PRN PRN Reason: Pain Score 4-10/10 Prochlorperazine Edisylate (Compazine Iv) 10 mg IV Q6H PRN PRN PRN Reason: NAUSEA Senna/Docusate Sodium (Senokot-S, Brisa-Colace) 0 tablet PO DAILY PRN PRN Reason: Constipation Simethicone (Mylicon) 80 mg PO PCHS PRN PRN Reason: Indigestion/stomach pain Sodium Chloride () 5 - 15 ml IV UD PRN PRN Reason: SALINE FLUSH Medical Necessity - Tobacco Use Smoking Status: Never smoker Assessment/Plan All Active Problems (Last Reviewed 03/29/20 @ 11:16 by Rebekah Burns) Gestational hypertension (Acute) White coat syndrome with high blood pressure but without hypertension (Acute) conceived through in vitro fertilization (Acute) PCOS (polycystic ovarian syndrome) (Acute) Asthma (Acute) PCOS (polycystic ovarian syndrome) (Acute) Supervision of high risk , antepartum (Acute) (Acute) Infertility (Acute) s/p LTCS PPD # 1 1. routine post care 2. breast feeding- support given 3. rh positive 4. rubella immune
[2020-03-31] MEDS: Senna/Docusate Sodium 1 Tablet PO (12:21)
[2020-03-31] MEDS: 0.9% Saline Lock 10 ML Syringe IV ×3 (12:21→23:55)
--- NOTE | 2020-03-31 21:27 | DCINST_ITS ---
Discharge Diet: No Restrictions Discharge Activity: May Not Drive - for 2 weeks, May not drive while taking narcotic pain medications., May Shower, May Take a Tub Bath - in 7 days May resume sexual activity in: 4-6 weeks Lifting Restrictions: 20 pounds Additional Activity Instructions:: Nothing in the vagina for 4-6 weeks. You may return to work/school in 6 weeks. Call your doctor if your incision/area has: Continuous Slow Oozing, Sudden Increased Bleeding, Increased Pain/ Swelling, Increased Redness, Foul Smelling Discharge Call your doctor if you observe: Fever of 101 or Higher, Using more than one pad per hour - for 2 hours Suture Line Care: Avoid Pulling/Pushing, Avoid Pinching/Bending Cleanse incision/area with: Keep Dressing Clean & Dry Additional Instructions: If you experience any of the following, contact your healthcare provider. * Bleeding that soaks a pad every hour for 2 hours * Fever 100.4 or higher * Unrelieved incision or abdominal pain * Swelling, redness, discharge or bleeding from your incision or episiotomy site * Your incision begins to separate * Problems urinating (including inability to urinate or burning while urinating). * Visual changes * Severe headache * Flu-like symptoms * Pain or redness in one of both of your breasts * Pain, warmth, tenderness or swelling in your legs, especially the calf area * Frequent nausea and vomiting * Symptoms of depression or anxiety If you experience any of the following, call 911 or go to the nearest Emergency Room. * Chest pain * Problems breathing * Seizure activity * Partial or complete paralysis of a body part, slurred speech, weakness or drooping of the face, or a sudden inability to walk or hold your balance Allergies/Adverse Reactions: Allergies No Known Allergies Allergy (Verified 03/29/20 11:15) Medications to take at Discharge aspirin 81 mg tablet,delayed release 81 mg PO DAILY 10/12/19 Albuterol Inhaler [Ventolin Hfa (SP)] 2 puff INHALATION Q4H PRN PRN 03/29/20 Beclomethasone Dipropionate [Qvar RediHaler] 1 inh INHALATION BID 03/29/20 Vits [Prenatabs FA] 1 tab PO DAILY 03/29/20 Ibuprofen [Motrin] 600 mg PO Q6H PRN PRN #30 tab 03/31/20 Oxycodone HCl/Acetaminophen [Percocet 5-325] 1 - 2 tablet PO Q6H PRN PRN 7 Days #15 tablet 03/31/20 The following prescriptions were given: Ibuprofen [Motrin] 600 mg PO Q6H PRN PRN #30 tab PRN Reason: Pain Transmission Status: Pending to [facility] Oxycodone HCl/Acetaminophen [Percocet 5-325] 1 - 2 tablet PO Q6H PRN PRN 7 Days #15 tablet PRN Reason: Pain Transmission Status: Sent to [facility] Follow-Up: Call to make an appointment with your doctor for an incision check in 1-2 weeks. You will also need a 6 week post- follow up appointment. Test results from this visit will be discussed in further detail at your follow- up appointment, if applicable. Please Follow Up With: Jenae Douglass MD - Call to make an appointment for an incision check in 1-2 [phone] When: You will need a post- check in 6 weeks. Primary Care Physician: Renea Haas PA-C [Primary Care Provider] -
[2020-04-01] MEDS: 0.9% Saline Lock 10 ML Syringe IV (05:51)
[2020-04-01] MEDS: Ketorolac 30 MG/ML Syringe IV ×2 (05:51→12:48)
[2020-04-01 07:00] VITALS: BP 131/96; PULSE 96; RESP 16; TEMP 36.5; O2SAT 98
[2020-04-01] MEDS: Senna/Docusate Sodium 1 Tablet PO (07:57)
[2020-04-01] MEDS: Acetaminophen 500 MG Tablet 1000 MG PO ×2 (07:57→17:43)
--- NOTE | 2020-04-01 08:55 | PCM.PN.OB ---
Patient Problems: Active and Suspected Problems (Last Reviewed 03/29/20 @ 11:16 by Rebekah Burns) Gestational hypertension (Acute) Subjective: Doing well, no complaints.Pain controlled. Denies CP, SOB, N,V. Ambulating well, tolerating po. Lochia moderate, going well. Note elevated BP today. Denies headache, vision changes - Physical Exam Vitals/I&O's: Vital Signs Temp Pulse Resp BP Pulse Ox 97.7 F L 96 16 131/96 H 98 04/01/20 07:00 04/01/20 07:00 04/01/20 07:00 04/01/20 07:00 04/01/20 07:00 Oxygen Delivery Method Room Air Weight: 221 lb 9.033 oz Body Mass Index (BMI) 33.7 Intake and Output for Last 24 Hours 03/30/20 03/31/20 04/01/20 23:59 23:59 23:59 Intake Total 4023.40 / 4023.40 3830 / 3830 Output Total 2350 / 2350 3200 / 3200 Balance 1673.40 / 1673.40 630 / 630 General: Alert, Oriented x3 Abdomen: Soft, Non-Distended, - - FF 2 below U. Dressing dry and intact Current Medications Acetaminophen (Tylenol) 1,000 mg PO Q8H PRN PRN Reason: Pain Score 1-3/10 Last Admin: 04/01/20 07:57 Dose: 1,000 mg Documented by: Bisacodyl (Dulcolax) 10 mg RECTAL UD PRN PRN Reason: If no BM Hydrocortisone (Hytone) 1 applic TOPICAL TID PRN PRN; Protocol PRN Reason: Discomfort Naloxone HCl 4 mg/ Dextrose 504 mls @ 0 mls/hr IV .Q0M PRN; Protocol PRN Reason: Respiratory depression Naloxone HCl 4 mg/ Dextrose 504 mls @ 0 mls/hr IV .Q0M PRN; Protocol PRN Reason: To maintain Resp. rate >10 Ketorolac Tromethamine (Toradol (Bkc)) 30 mg IV Q6 KARL Stop: 04/01/20 12:01 Last Admin: 04/01/20 05:51 Dose: 30 mg Documented by: Methylergonovine Maleate (Methergine) 0.2 mg IM X1 PRN PRN Reason: Uterine Atony Naloxone HCl (Narcan) 0.02 mg IV Q1M PRN PRN Reason: RR <10 and pt unresponsive Naproxen (Naprosyn) 250 - 500 mg PO Q8H PRN PRN PRN Reason: Pain Score 1-3/10 Ondansetron HCl (Zofran) 4 mg IV Q4H PRN PRN PRN Reason: Nausea Oxycodone HCl (Oxyir) 5 - 10 mg PO Q4H PRN PRN PRN Reason: Pain Score 4-10/10 Prochlorperazine Edisylate (Compazine Iv) 10 mg IV Q6H PRN PRN PRN Reason: NAUSEA Senna/Docusate Sodium (Senokot-S, Brisa-Colace) 0 tablet PO DAILY PRN PRN Reason: Constipation Last Admin: 04/01/20 07:57 Dose: 1 tablet Documented by: Simethicone (Mylicon) 80 mg PO PCHS PRN PRN Reason: Indigestion/stomach pain Sodium Chloride () 5 - 15 ml IV UD PRN PRN Reason: SALINE FLUSH Last Admin: 04/01/20 05:51 Dose: 10 ml Documented by: Medical Necessity - Tobacco Use Smoking Status: Never smoker Assessment/Plan All Active Problems (Last Reviewed 03/29/20 @ 11:16 by Rebekah Burns) Gestational hypertension (Acute) White coat syndrome with high blood pressure but without hypertension (Acute) conceived through in vitro fertilization (Acute) PCOS (polycystic ovarian syndrome) (Acute) Asthma (Acute) PCOS (polycystic ovarian syndrome) (Acute) Supervision of high risk , antepartum (Acute) (Acute) Infertility (Acute) s/p LTCS PPD # 2 1. routine post care 2. breast feeding- support given 3. rh positive 4. rubella immune 5. elevated bp, will recheck 2 hours, consider labetalol.
[2020-04-01 11:00] VITALS: BP 132/84
[2020-04-01 11:55] LABS: Hematocrit 34.2 % (37-47); Hemoglobin 11.6 g/dL (12.0-15.0); Mean Corp Hgb Conc 33.9 g/dL (32-36); Mean Corpuscular Hgb 30.9 pg (27.0-32.0); Mean Corpuscular Volume 91.2 fL (81-99); Mean Platelet Vol. 10.5 fl (6.2-12.0); Platelet Count 267 K/mm3 (150-450); RBC Distribution Width CV 12.1 % (11.6-14.6); RBC Distribution Width SD 39.8 fl (35.1-43.9); Red Blood Count 3.75 M/mm3 (4.2-5.4); White Blood Count 13.9 K/mm3 (4.4-11.0)
[2020-04-01 17:36] VITALS: BP 120/79; PULSE 84; RESP 16; TEMP 36.6; O2SAT 98
[2020-04-01 20:21] VITALS: BP 141/86; BP 143/90; PULSE 75; RESP 16; TEMP 36.9; O2SAT 98
[2020-04-01] MEDS: oxyCODONE 5 MG Tablet PO (20:32)
[2020-04-01] MEDS: Naproxen 250 MG Tablet PO (22:23)
[2020-04-02] MEDS: Acetaminophen 500 MG Tablet 1000 MG PO (01:59)
[2020-04-02 02:02] VITALS: BP 142/89; PULSE 66; RESP 16; TEMP 36.7; O2SAT 96
[2020-04-02] MEDS: Naproxen 250 MG Tablet PO (06:06)
[2020-04-02] MEDS: oxyCODONE 5 MG Tablet PO ×2 (09:03→17:15)
[2020-04-02] MEDS: Senna/Docusate Sodium 1 Tablet PO (09:04)
[2020-04-02 09:08] VITALS: BP 149/89; PULSE 71; RESP 16; TEMP 36.6; O2SAT 100
--- NOTE | 2020-04-02 11:02 | PCM.PN.OB ---
Patient Problems: Active and Suspected Problems (Last Reviewed 03/29/20 @ 11:16 by Rebekah Burns) Gestational hypertension (Acute) Subjective: Doing well, no complaints.Pain controlled. Denies CP, SOB, N,V. Ambulating well, tolerating po. Lochia moderate, going well. Note still elevated BP without headache, vision changes. States feels really well - Physical Exam Vitals/I&O's: Vital Signs Temp Pulse Resp BP Pulse Ox 98 F 71 16 149/89 H 100 04/02/20 09:08 04/02/20 09:08 04/02/20 09:08 04/02/20 09:08 04/02/20 09:08 Oxygen Delivery Method Room Air Weight: 221 lb 9.033 oz Body Mass Index (BMI) 33.7 Intake and Output for Last 24 Hours 03/31/20 04/01/20 04/02/20 23:59 23:59 23:59 Intake Total 3830 / 3830 Output Total 3200 / 3200 Balance 630 / 630 General: Alert, Oriented x3 Abdomen: Non-Distended, - - FF below U. Dressing dry and intact Laboratory Results 04/01/20 11:35: WBC 13.9 H, RBC 3.75 L, Hgb 11.6 L, Hct 34.2 L, MCV 91.2, MCH 30.9, MCHC 33.9, RDW Std Deviation 39.8, RDW Coeff of Terry 12.1, Plt Count 267, MPV 10.5 Current Medications Acetaminophen (Tylenol) 1,000 mg PO Q8H PRN PRN Reason: Pain Score 1-3/10 Last Admin: 04/02/20 01:59 Dose: 1,000 mg Documented by: Bisacodyl (Dulcolax) 10 mg RECTAL UD PRN PRN Reason: If no BM Hydrocortisone (Hytone) 1 applic TOPICAL TID PRN PRN; Protocol PRN Reason: Discomfort Naloxone HCl 4 mg/ Dextrose 504 mls @ 0 mls/hr IV .Q0M PRN; Protocol PRN Reason: Respiratory depression Naloxone HCl 4 mg/ Dextrose 504 mls @ 0 mls/hr IV .Q0M PRN; Protocol PRN Reason: To maintain Resp. rate >10 Methylergonovine Maleate (Methergine) 0.2 mg IM X1 PRN PRN Reason: Uterine Atony Naloxone HCl (Narcan) 0.02 mg IV Q1M PRN PRN Reason: RR <10 and pt unresponsive Naproxen (Naprosyn) 250 - 500 mg PO Q8H PRN PRN PRN Reason: Pain Score 1-3/10 Last Admin: 04/02/20 06:06 Dose: 500 mg Documented by: Ondansetron HCl (Zofran) 4 mg IV Q4H PRN PRN PRN Reason: Nausea Oxycodone HCl (Oxyir) 5 - 10 mg PO Q4H PRN PRN PRN Reason: Pain Score 4-10/10 Last Admin: 04/02/20 09:03 Dose: 5 mg Documented by: Prochlorperazine Edisylate (Compazine Iv) 10 mg IV Q6H PRN PRN PRN Reason: NAUSEA Senna/Docusate Sodium (Senokot-S, Brisa-Colace) 0 tablet PO DAILY PRN PRN Reason: Constipation Last Admin: 04/02/20 09:04 Dose: 1 tablet Documented by: Simethicone (Mylicon) 80 mg PO PCHS PRN PRN Reason: Indigestion/stomach pain Sodium Chloride () 5 - 15 ml IV UD PRN PRN Reason: SALINE FLUSH Last Admin: 04/01/20 05:51 Dose: 10 ml Documented by: Medical Necessity - Tobacco Use Smoking Status: Never smoker Assessment/Plan All Active Problems (Last Reviewed 03/29/20 @ 11:16 by Rebekah Burns) Gestational hypertension (Acute) White coat syndrome with high blood pressure but without hypertension (Acute) conceived through in vitro fertilization (Acute) PCOS (polycystic ovarian syndrome) (Acute) Asthma (Acute) PCOS (polycystic ovarian syndrome) (Acute) Supervision of high risk , antepartum (Acute) (Acute) Infertility (Acute) s/p LTCS PPD # 3 1. routine post care 2. breast feeding- support given 3. rh positive 4. rubella immune 5. Consult with Dr. Mayo. Continue routine check of BP. Office BP check in 1 week 6. Reviewed to call with headache, vision changes 7. Hotel status today
--- NOTE | 2020-04-02 11:06 | PCM.DC.SUM ---
Discharge Date and Diagnosis - Problem List Patient Problems: Active and Suspected Problems (Last Reviewed 03/29/20 @ 11:16 by Rebekah Burns) Gestational hypertension (Acute) Date of Admission: 03/30/20 - Primary Discharge Diagnosis Acute Problems: Active Problems (Last Reviewed 03/29/20 @ 11:16 by Rebekah Burns) Gestational hypertension (Acute) Hospital Course and Treatment Consultations 03/29/20 19:45 Consult: Anesthesia Routine Comment: Reason For Exam: Labor Operations: - - primary c section Summary of Care Provided: The patient is a 29 year old F primary c section distress and hypertension. Routine postsurgical course. Continue home and office follow up on BP. routine diet. no restrictions Patient Problems: Active and Suspected Problems (Last Reviewed 03/29/20 @ 11:16 by Rebekah Burns) Gestational hypertension (Acute) - Physical Exam Vitals/I&O's: Vital Signs Temp Pulse Resp BP Pulse Ox 98 F 71 16 149/89 H 100 04/02/20 09:08 04/02/20 09:08 04/02/20 09:08 04/02/20 09:08 04/02/20 09:08 Oxygen Delivery Method Room Air Weight: 221 lb 9.033 oz Body Mass Index (BMI) 33.7 Intake and Output for Last 24 Hours 03/31/20 04/01/20 04/02/20 23:59 23:59 23:59 Intake Total 3830 / 3830 Output Total 3200 / 3200 Balance 630 / 630 Laboratory Results 04/01/20 11:35: WBC 13.9 H, RBC 3.75 L, Hgb 11.6 L, Hct 34.2 L, MCV 91.2, MCH 30.9, MCHC 33.9, RDW Std Deviation 39.8, RDW Coeff of Terry 12.1, Plt Count 267, MPV 10.5 Current Medications Acetaminophen (Tylenol) 1,000 mg PO Q8H PRN PRN Reason: Pain Score 1-3/10 Last Admin: 04/02/20 01:59 Dose: 1,000 mg Documented by: Bisacodyl (Dulcolax) 10 mg RECTAL UD PRN PRN Reason: If no BM Hydrocortisone (Hytone) 1 applic TOPICAL TID PRN PRN; Protocol PRN Reason: Discomfort Naloxone HCl 4 mg/ Dextrose 504 mls @ 0 mls/hr IV .Q0M PRN; Protocol PRN Reason: Respiratory depression Naloxone HCl 4 mg/ Dextrose 504 mls @ 0 mls/hr IV .Q0M PRN; Protocol PRN Reason: To maintain Resp. rate >10 Methylergonovine Maleate (Methergine) 0.2 mg IM X1 PRN PRN Reason: Uterine Atony Naloxone HCl (Narcan) 0.02 mg IV Q1M PRN PRN Reason: RR <10 and pt unresponsive Naproxen (Naprosyn) 250 - 500 mg PO Q8H PRN PRN PRN Reason: Pain Score 1-3/10 Last Admin: 04/02/20 06:06 Dose: 500 mg Documented by: Ondansetron HCl (Zofran) 4 mg IV Q4H PRN PRN PRN Reason: Nausea Oxycodone HCl (Oxyir) 5 - 10 mg PO Q4H PRN PRN PRN Reason: Pain Score 4-10/10 Last Admin: 04/02/20 09:03 Dose: 5 mg Documented by: Prochlorperazine Edisylate (Compazine Iv) 10 mg IV Q6H PRN PRN PRN Reason: NAUSEA Senna/Docusate Sodium (Senokot-S, Brisa-Colace) 0 tablet PO DAILY PRN PRN Reason: Constipation Last Admin: 04/02/20 09:04 Dose: 1 tablet Documented by: Simethicone (Mylicon) 80 mg PO PCHS PRN PRN Reason: Indigestion/stomach pain Sodium Chloride () 5 - 15 ml IV UD PRN PRN Reason: SALINE FLUSH Last Admin: 04/01/20 05:51 Dose: 10 ml Documented by: Discharge Diet: No Restrictions Discharge Activity: May Not Drive - for 2 weeks, May not drive while taking narcotic pain medications., May Shower, May Take a Tub Bath - in 7 days May resume sexual activity in: 4-6 weeks Additional Activity Instructions:: Nothing in the vagina for 4-6 weeks. You may return to work/school in 6 weeks. Call your doctor if your incision/area has: Continuous Slow Oozing, Sudden Increased Bleeding, Increased Pain/ Swelling, Increased Redness, Foul Smelling Discharge Call your doctor if you observe: Fever of 101 or Higher, Using more than one pad per hour - for 2 hours Suture Line Care: Avoid Pulling/Pushing, Avoid Pinching/Bending Cleanse incision/area with: Keep Dressing Clean & Dry Home Medications: Medications to take at Discharge aspirin 81 mg tablet,delayed release 81 mg PO DAILY 10/12/19 Albuterol Inhaler [Ventolin Hfa (SP)] 2 puff INHALATION Q4H PRN PRN 03/29/20 Beclomethasone Dipropionate [Qvar RediHaler] 1 inh INHALATION BID 03/29/20 Vits [Prenatabs FA] 1 tab PO DAILY 03/29/20 Ibuprofen [Motrin] 600 mg PO Q6H PRN PRN #30 tab 03/31/20 Oxycodone HCl/Acetaminophen [Percocet 5-325] 1 - 2 tab PO Q6H PRN PRN 7 Days #15 tab 03/31/20 Following Prescrptions Were Given to Patient: Ibuprofen [Motrin] 600 mg PO Q6H PRN PRN #30 tab PRN Reason: Pain Transmission Status: Received by [facility] Oxycodone HCl/Acetaminophen [Percocet 5-325] 1 - 2 tab PO Q6H PRN PRN 7 Days #15 tab PRN Reason: Pain Transmission Status: Received by [facility] Primary Care Physician: Renea Haas PA-C [Primary Care Provider] - Please Follow Up With: Jenae Douglass MD - Call to make an appointment for an incision check in 1-2 [phone] When: You will need a post- check in 6 weeks. Medical Necessity - Tobacco Use Smoking Status: Never smoker Meaningful Use Info Meaningful Use Diagnoses (Choose all that apply): None applicable
[2020-04-02 14:30] VITALS: BP 141/91; PULSE 77; RESP 16; TEMP 36.5; O2SAT 100
== END 2020-04-02 17:00 | disposition home or self-care (01) | DRG 788 ==
LOC: WPOUT 19:27 → WP 19:27
PROVIDERS: Nurse Practitioner Women's Health; Admitting Provider Obstetrics & Gynecology; PCP Family Medicine; Referring Provider Obstetrics & Gynecology; Visit Provider Obstetrics & Gynecology
DX: O13.4 Gestational [pregnancy-induced] hypertension without significant proteinuria, complicating childbirth (principal); O99.284 Endocrine, nutritional and metabolic diseases complicating childbirth; E28.2 Polycystic ovarian syndrome; O69.81X0 Labor and delivery complicated by cord around neck, without compression, not applicable or unspecified; O09.813 Supervision of pregnancy resulting from assisted reproductive technology, third trimester; O76 Abnormality in fetal heart rate and rhythm complicating labor and delivery; O99.52 Diseases of the respiratory system complicating childbirth; J45.909 Unspecified asthma, uncomplicated; Z79.82 Long term (current) use of aspirin; Z3A.37 37 weeks gestation of pregnancy; Z37.0 Single live birth
CPT/HCPCS: 36415; 59025; 59050; 82565; 82570; 84156; 84450; 84460; 84550; 85025; 85027; 85610; 85730; 86850; 86900; 86901; 87635; 99218; G2023; J7120; A4216; G0378; J2405; U0004

== ENCOUNTER → 2021-05-16 14:43 | Outpatient (CLI) | payer OTHER, SELFPAY ==
[2021-05-16 12:36] VITALS: BMI 36.5
[2021-05-16 16:17] LABS: Thyroid Stim Hormone (TSH) 0.41 uIU/mL (0.358-3.74)
== END ==
PROVIDERS: PCP Family Medicine; Referring Provider Internal Medicine Cardiovascular Disease; Visit Provider Internal Medicine Cardiovascular Disease
DX: R00.2 Palpitations (principal)
CPT/HCPCS: 36415; 84443

== ENCOUNTER → 2021-05-27 13:46 | Outpatient (CLI) | payer OTHER, SELFPAY ==
[2021-05-16 12:36] VITALS: BMI 36.5
--- NOTE | 2021-05-27 13:49 | ECHOD_ITS ---
Reason For Study: PALPITATIONS Procedure This was a 2D Doppler, Color Flow transthoracic echocardiogram. Exam performed in department. Left Ventricle Normal LV size. Left ventricular systolic function is normal. The estimated ejection fraction is 60 %. No regional wall motion abnormalities noted. Right Ventricle Normal RV size. Normal systolic function. Atria Normal left atrium. Normal right atrium. Mitral Valve Normal mitral valve. Mild (1+) mitral valve insufficiency. Tricuspid Valve Normal tricuspid valve. Pulmonic Valve Normal pulmonic valve. Great Vessels Normal aortic root. The pulmonary artery is normal size. Normal inferior vena cava. Pericardium/Pleural No pericardial effusion. MMode/2D Measurements & Calculations LVIDd: 4.4 cm IVSd: 0.99 cm Ao root diam: 2.7 cm LVIDs: 2.9 cm LVPWd: 0.99 cm RVDd: 3.0 cm FS: 33.5 % LAV(MOD-bp): 50.2 ml LA A4 area: 16.6 cm2 LA dimension(2D): 3.1 cm LAV(MOD-bp) Indexed: 23.3 ml/m2 LAV(MOD-sp2): 43.6 ml LAV(MOD-sp4): 49.4 ml RA A4 area: 15.8 cm2 Time Measurements MV dec time: 0.14 sec Doppler Measurements & Calculations MV E max robert: 92.6 cm/sec Lat Peak E' Robert: 13.8 cm/sec Med Peak E' Robert: 9.2 cm/sec MV A max robert: 78.4 cm/sec E/E' lat: 6.7 E/E' med: 10.0 MV E/A: 1.2 Ao V2 max: 152.2 cm/sec LV V1 max: 146.4 cm/sec PA V2 max: 100.9 cm/sec Ao max P.3 mmHg LV V1 max P.6 mmHg ECHO/Echo Complete Interpretation Summary Normal LV size. Left ventricular systolic function is normal. The estimated ejection fraction is 60 %. Structurally normal valves. Ordering Physician: Clarence Elliott Referring Physician: Renea Haas Performed By: Valerie Rodriguez, MAC, RVT
== END ==
PROVIDERS: PCP Family Medicine; Referring Provider Internal Medicine Cardiovascular Disease; Visit Provider Internal Medicine Cardiovascular Disease
DX: R00.2 Palpitations (principal); I10 Essential (primary) hypertension
CPT/HCPCS: 93306

== ENCOUNTER → 2021-09-09 | Outpatient (CLI) | payer OTHER, SELFPAY ==
[2021-09-09 18:22] LABS: Creatinine, Urine (random) < 13.00 mg/dL (NO RANGE EST.); Protein, Urine (Random) < 6.0 mg/dL (<11.9)
[2021-09-09 18:24] LABS: Amphetamine Urine VISTA NEGATIVE (<1000 ng/mL); Barbiturate Urine VISTA NEGATIVE (< 200 ng/mL); Benzodiazepine Urine VISTA NEGATIVE (< 200 ng/mL); Cocaine Urine VISTA NEGATIVE (< 300 ng/mL); Ecstacy Urine VISTA NEGATIVE (< 500 ng/mL); Methadone Urine VISTA NEGATIVE (< 300 ng/mL); PCP Urine VISTA NEGATIVE (< 25 ng/mL); THC Urine VISTA NEGATIVE (< 50 ng/mL); Vista UDS pH Range 6
== END | disposition home or self-care (01) ==
LOC: LABSPEC 16:13
PROVIDERS: PCP Family Medicine; Visit Provider Obstetrics & Gynecology
DX: O13.2 Gestational [pregnancy-induced] hypertension without significant proteinuria, second trimester (principal); Z3A.15 15 weeks gestation of pregnancy
CPT/HCPCS: 80307; 82570; 84156

== ENCOUNTER 2021-12-05 12:26 | Outpatient (CLI) | payer OTHER, SELFPAY ==
[2021-12-05 12:50] LABS: Absolute Lymphocyte Count 2.62 X10^3/uL (0.83-4.51); Absolute Neutrophil Count 8.6 X10^3/uL (2.0-7.7); Basophil# 0.05 X10^3/uL; Basophil% 0.4 % (0-1); Eosinophils% 1.7 % (0-5); Hematocrit 35.6 % (37-47); Hemoglobin 12.2 g/dL (12.0-15.0); Lymphocyte # 2.62 X10^3/ul (0.83-4.51); Lymphocyte % 21.6 % (19-41); Mean Corp Hgb Conc 34.3 g/dL (32-36); Mean Corpuscular Hgb 30.1 pg (27.0-32.0); Mean Corpuscular Volume 87.9 fL (81-99); Mean Platelet Vol. 10.4 fl (6.2-12.0); NRBC Flagged by Analyzer 0 % (0-5); Neutrophil # 8.61 X10^3/uL (2.7-7.7); Platelet Count 296 K/mm3 (150-450); RBC Distribution Width CV 12.5 % (11.6-14.6); RBC Distribution Width SD 39.6 fl (35.1-43.9); Red Blood Count 4.05 M/mm3 (4.2-5.4); White Blood Count 12.1 K/mm3 (4.4-11.0)
[2021-12-05 13:13] LABS: Glucose Challenge Gest 1H 50g 105 mg/dL (70-140)
== END 2021-12-05 23:59 | disposition short-term general hospital (02) ==
LOC: LAB 12:30
PROVIDERS: PCP Family Medicine; Visit Provider Obstetrics & Gynecology
DX: Z13.1 Encounter for screening for diabetes mellitus (principal); O13.2 Gestational [pregnancy-induced] hypertension without significant proteinuria, second trimester; Z3A.23 23 weeks gestation of pregnancy
CPT/HCPCS: 36415; 82950; 85025

== ENCOUNTER 2021-12-23 22:02 | Outpatient (CLI) | payer OTHER, SELFPAY ==
[2021-12-23] VITALS (19 sets, daily range): BP systolic 126–184; BP diastolic 60–103; PULSE 75–93; RESP 18; TEMP 37; O2SAT 94–98; BMI 38.5
[2021-12-23] MEDS: Labetalol (Prefilled) 20 MG/4 ML IV (22:57)
[2021-12-23] MEDS: Magnesium Sulfate 4gm/100mL 4 GM/100 ML IV.SOLN. IV (23:00)
[2021-12-23 23:06] LABS: Hematocrit 33.8 % (37-47); Hemoglobin 12.1 g/dL (12.0-15.0); Mean Corp Hgb Conc 35.8 g/dL (32-36); Mean Corpuscular Hgb 30.6 pg (27.0-32.0); Mean Corpuscular Volume 85.6 fL (81-99); Mean Platelet Vol. 10.8 fl (6.2-12.0); Platelet Count 267 K/mm3 (150-450); RBC Distribution Width CV 11.9 % (11.6-14.6); Red Blood Count 3.95 M/mm3 (4.2-5.4); White Blood Count 16.6 K/mm3 (4.4-11.0)
[2021-12-23] MEDS: Magnesium Sulfate 4gm/100mL 2 GM/50 ML IV.SOLN. IV (23:14)
[2021-12-23 23:20] LABS: Protein, Urine (Random) 332.3 mg/dL (<11.9); Protein:Creat Ratio 8105 mg/g CRE (0-200)
[2021-12-23] MEDS: Labetalol (Prefilled) 20 MG/4 ML 40 MG IV (23:22)
[2021-12-23 23:26] LABS: EST Glomerular Filtration Rate 88 mL/min (>60)
[2021-12-23 23:27] LABS: AST(SGOT) 21 U/L (15-37); Alanine Aminotransfer ALT/SGPT 23 U/L (13-56); Est Glom Filt Rate - Afr Amer 106 mL/min (>60); Uric Acid 6.8 mg/dL (2.6-6.0)
[2021-12-23] MEDS: Magnesium Sulfate 20 GM/500 ML BAG IV (23:36)
--- NOTE | 2021-12-23 23:38 | OB.TRI.NOTE ---
HPI - General HPI Narrative PAULY PERES, is a 31 F who presents at 30 weeks 5 days with preeclampsia with severe features. Patient has edema with headache and severe range blood pressures 160s to 180s over 90s to 100s. Patient had a complicated by history of gestational hypertension and currently had Covid in earlier and had an IVF . Upon lab evaluation creatinine is elevated as well as uric acid and urine protein creatinine ratio is in the severe range of 8000. Maternal Data Information LYNETTE Calculator Estimated Delivery Date Method Current WG Current Estimate 02/26/22 LMP (Certain) 30w 5d PFSH PFSH Medical History Asthma Gestational hypertension Lab test positive for detection of COVID-19 virus PCOS (polycystic ovarian syndrome) Supervision of high risk , antepartum Home Medications albuterol sulfate 2 puff INHALATION Q4H PRN PRN 03/29/20 [History Last Taken 12/22/21] prenat.vits,hu,bvz-esco-zydur 1 tab PO DAILY 05/16/21 [History Last Taken 12/23/21] beclomethasone dipropionate 40 mcg/actuation HFA breath activated aerosol 1 inh INHALATION BID #10.6 g 09/09/21 [Rx Last Taken 12/23/21] aspirin 81 mg chewable tablet 81 mg PO DAILY 12/05/21 [History Last Taken 12/23/21] Allergy/AdvReac Type Severity Reaction Status Date / Time No Known Allergies Allergy Verified 11/05/21 16:01 Surgical History delivery delivered History of tonsillectomy Social History adopted: No household members: spouse housing: house current occupational status: employed current occupation: - [employer] pets and animals: Yes history of recent travel: No sexually active: Yes Smoking Status: Never smoker second hand exposure: Yes alcohol intake: current alcohol intake frequency: a few times a month details: not while substance use type: does not use seatbelt use: always do you feel safe at home: Yes additional social history: [employer] [place] [employer] History 1 Elective abortions Hx Para 1 Spontaneous abortions Hx # Term Pregnancies Ectopic pregnancies Hx # Pregnancies Multiple births # of living children 1 Past Pregnancies Del. Date Name GA/Weeks Outcome Route Bth Weight Infant Gen Labor Lgth Anesthesia Del Locatn Provider FOB 03/30/20 Raza 37 live - full term 6lbs 6oz Male 19 hours spinal [facility] Dr. Jenae Douglass Delivery Date: 03/30/20 LTCS for NRFHTs, partial funic presentation, IOL Donna Connelly Visit Details Expected Delivery Route/Plan RLTCS with SM Plans Covid status: counseled regarding risk of covid in vs vaccination and declined vaccination Flu vaccine: given Tdap vaccine: [] Rhogam: [] LARC form signed: [] Problem list reviewed and updated with the most current plan of care details and appropriate orders placed. Relevant counseling for the gestational age provided. Continue routine care and follow up unless otherwise noted in visit notes/problem list details OB Flowsheet Initial Weight: 225 lb Date <del>?</del> EGA Weight BP Urine Prot <del>?</del> Glucose FHR FuHt Pres Dilation <del>?</del> Effaced St Visit Note 09/09/21 <del>?</del> 15w 5d 225 lb (+0 oz) <del>?</del> 170 <del>?</del> SM- MARY RGI ivf prengancy, doing well but having nighttime asthma symptoms stRTED QVRA 10/10/21 <del>?</del> 20w 1d 224 lb (-16 oz) 136/88 <del>?</del> 175 <del>?</del> Sm- no vb cramping, asthma greatly improved. 11/05/21 <del>?</del> 23w 6d 227 lb (+2 lb) 122/92 <del>?</del> 160 <del>?</del> SM- no vb lof cramping nl anatomy, echo ordered 12/05/21 <del>?</del> 28w 1d 227 lb (+2 lb) 114/80 <del>?</del> 155 29 <del>?</del> SM- no vb lof good fm no regular ctx 12/23/21 <del>?</del> 30w 5d 253 lb (+28 lb) 181/102 184/101 184/103 154/92 169/90 164/94 160/94 <del>?</del> <del>?</del> ROS Constitutional Constitutional: Reports systems reviewed and no addt'l complaints, except as documented Gastrointestinal Gastrointestinal: Reports as per HPI Physical Exam Const alert, oriented x3 and no apparent distress HEENT Head and Scalp: normocephalic and atraumatic Eyes EOMs intact bilaterally Neck full ROM and no lymphadenopathy Chest inspection of chest normal Resp normal respiratory effort GI GI Narrative: gravid, abdomen nontender, AGA Neuro no focal motor deficits Motor Exam: clonus absent NST FHR Rate Baby A Baseline: 140 Variability:: Moderate Accelerations:: 15 x 15 Decelerations:: None NST Reactive:: Yes FHR Category:: Category I Uterine Activity:: no regular Assessment & Plan (1) Preeclampsia, severe: COMMENT: transport to [facility], Magnesium Sulfate and IV labetalol (2) Lab test positive for detection of COVID-19 virus: COMMENT: 81mg asa and 32&36 wk growth US (3) Gestational hypertension: QUALIFIERS: Trimester: second trimester Qualified Code(s): O13.2 - Gestational [-induced] hypertension without significant proteinuria, second trimester COMMENT: h/o in previous - nl baseline labs at [facility] (4) White coat syndrome with high blood pressure but without hypertension: COMMENT: cuff validated. continue home bp testing. (5) H/O section: COMMENT: plan RLTCS with , scheduled for 02/19 @ 7:30am (6) : QUALIFIERS: Weeks of gestation: 28 weeks Qualified Code(s): Z3A.28 - 28 weeks gestation of COMMENT: declined afp screen. Low risk genetics. 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 Anatomy US normal, however, some areas not seen needs follow-up scheduled on 11/04/21. (7) Supervision of high risk , antepartum: COMMENT: PRR LYNETTE: 02/26/22 boy PC: Raza Spouse Fidencio (8) conceived through in vitro fertilization: COMMENT: plan 22-24 week echo-scheduled on 11/04/21 with [facility]. (follow up growth at [facility] 12/11/21 normal ) (9) Asthma: COMMENT: qvar ordered, albuterol PRN, fu with PCP PLAN: Patient admitted given IV magnesium sulfate and IV labetalol to stabilize blood pressures. Blood work sent and reviewed. Will transport to [facility] due to prematurity. Celestone given for prematurity. Charges/Coding Multi Select Codes Visit Charges Office Visit/Consults: 71022 OV L3 Est Urinary/Genital Urinary/Genital CPT Codes: 22968-54 non-stress test Interp
[2021-12-23] MEDS: Labetalol (Prefilled) 20 MG/4 ML 80 MG IV (23:42)
[2021-12-23 23:57] LABS: Prothrombin Time (Protime)PT. 12.6 SECONDS (11.7-14.9)
[2021-12-23] MEDS: Betamethasone/Betamethasone 30 MG/5 ML Vial 12 MG IM (23:57)
[2021-12-23 23:58] LABS: Partial Thromboplast Time 23.5 Seconds (24.1-36.2)
[2021-12-24] VITALS (9 sets, daily range): BP systolic 153–157; BP diastolic 81–90; PULSE 80–88; O2SAT 95–98
[2021-12-24] MEDS: Ondansetron 4 MG/2 ML Vial IV (00:07)
[2021-12-24] MEDS: Labetalol 200 MG Tablet PO (00:47)
== END 2021-12-24 00:55 | disposition home or self-care (01) ==
LOC: WPOUT 22:11 → WP 22:11
PROVIDERS: PCP Family Medicine; Visit Provider Obstetrics & Gynecology
DX: O14.13 Severe pre-eclampsia, third trimester (principal); O34.211 Maternal care for low transverse scar from previous cesarean delivery; O09.813 Supervision of pregnancy resulting from assisted reproductive technology, third trimester; O99.513 Diseases of the respiratory system complicating pregnancy, third trimester; J45.909 Unspecified asthma, uncomplicated; Z3A.30 30 weeks gestation of pregnancy; Z79.82 Long term (current) use of aspirin; Z86.16 Personal history of COVID-19; Z87.59 Personal history of other complications of pregnancy, childbirth and the puerperium
CPT/HCPCS: 96365; 96366; 96375 ×2; 96376; 96372; 36415; 59025; 59050; 82565; 82570; 84156; 84450; 84460; 84550; 85027; 85610; 85730; 99218; G0378; J0702; J2405

== ENCOUNTER → 2023-06-11 | Outpatient (CLI) | payer OTHER, SELFPAY ==
[2023-06-16 17:07] LABS: HPV APTIMA, High Risk Negative (Negative)
[2023-06-16 19:42] LABS: HPV Reflexed? YES, CHARGE PATIENT
== END | disposition home or self-care (01) ==
LOC: LABSPEC 10:52
PROVIDERS: PCP Family Medicine; Referring Provider Registered Nurse; Visit Provider Registered Nurse
DX: Z01.419 Encounter for gynecological examination (general) (routine) without abnormal findings (principal)
CPT/HCPCS: 87624; 88175; G0145

== ENCOUNTER → 2024-02-14 | Outpatient (CLI) | payer OTHER, SELFPAY ==
[2024-02-14 10:19] LABS: Rubella IgG Reactive (Nonreactive)
[2024-02-16 16:10] LABS: Anti-Cardiolipin Ab, IgG, Qn < 9 GPL U/mL (0-14); Anti-Cardiolipin Ab, IgM, Qn < 9 MPL U/mL (0-12); Beta-2-Glycoprotein I IgA <9 (0-25); Beta-2-Glycoprotein I IgG <9 (0-20); Beta-2-Glycoprotein I IgM <9 (0-32); Dilute Prothrombin Time (dPT) 35.3 sec (0.0-47.6); Dilute Russell Viper Venom 31.4 sec (0.0-47.0); Interpretation Comment: (.); PTT-LA 31.6 sec (0.0-43.5); dPT Confirm Ratio 1.05 Ratio (0.00-1.34)
== END | disposition home or self-care (01) ==
LOC: LAB 09:02
PROVIDERS: PCP Family Medicine; Visit Provider Obstetrics & Gynecology
DX: N96 Recurrent pregnancy loss (principal)
CPT/HCPCS: 36415; 86146; 86147; 86762

== ENCOUNTER → 2025-07-23 | Outpatient (CLI) | payer OTHER, SELFPAY ==
--- NOTE | 2025-07-23 | EMB_PTH ---
PATIENT: PAULY PERES LOC: [facility] U#:[id number] AGE/SX: 34/F ROOM: RE07/23/[address]: HANNAH Menchaca : 1990 BED: DIS: 07/23/2025 SPEC #: [id number] RECD: 07/23/25 10:59 STATUS: LIBBY REQ #: [id number] JEFRY: 07/23/25 00:[address]: Yoil Byrd NP DEPT: SURGICAL PATHOLOGY RECD BY: Elpidio Victor ENTERED: 07/23/25 13:50 SP TYPE: ENDOM BX/C ADRI DR: Renea Haas PA-C Tissues: A - Endometrium, NOS Procedures: Surgery Specimen Level IV HEADER OPERATION: Endometrial biopsy PRE-OP DIAGNOSIS: Abnormal uterine bleeding TISSUE SUBMITTED: A- Endometrial lining MICROSCOPIC DIAGNOSIS A. 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 COMMENT The diagnosis was called to the office of HANNAH Menchaca on 07/31/25 (by Delroy Victor [facility]). Selected slides/images were reviewed in intradepartmental consultation by Dr Tj Eugene ([facility] pathology division, [facility]). MICROSCOPIC DESCRIPTION Slides are reviewed. GROSS DESCRIPTION A. Received in formalin labeled with the patient's name and date of is a 2.7 x 1.6 x 0.4 cm aggregate of pink-red tissue fragments, clotted blood and mucoid material. Entirely submitted in 1 cassette. [place] 07/23/2025 CPT:83634
== END | disposition home or self-care (01) ==
LOC: LABSPEC 10:56
PROVIDERS: PCP Family Medicine; Visit Provider Nurse Practitioner Women's Health
DX: N93.9 Abnormal uterine and vaginal bleeding, unspecified (principal)
CPT/HCPCS: 88305